=== PATIENT | male | born 1935 | race African-American/Black ===

== ENCOUNTER 2018-01-21 23:18 | Inpatient (IN) | payer MEDICARE ==
[~2018-01-21] VITALS: Ht 175.3 cm; Wt 89.3 kg
[2018-01-22] MEDS ORDERED: FAMO20 GT (00:02)
[2018-01-22] MEDS ORDERED: CARV12 GT (00:02)
[2018-01-22] MEDS ORDERED: ATOR40TA28 GT (00:02)
[2018-01-22] MEDS ORDERED: AMLO-512 GT (00:02)
[2018-01-22] MEDS ORDERED: IPRA3AMP23 NEB (00:02)
[2018-01-22] MEDS ORDERED: DSSL GT (00:02)
[2018-01-22] MEDS ORDERED: ASPI81 GT (00:02)
[2018-01-22] MEDS ORDERED: HEPA500041 SQ (00:02)
[2018-01-22] MEDS ORDERED: LISI-661 GT (00:02)
[2018-01-22 00:06] LABS: BASOPHILS % (AUTO) 0.7 % (0.0-2.0); EOSINOPHILS % (AUTO) 0.5 % (1.0-6.0); HEMATOCRIT 49.1 % (41-53); HEMOGLOBIN 16.7 g/dL (13.5-17.5); LYMPHOCYTES # (AUTO) 1.8 K/uL (1.0-4.8); LYMPHOCYTES % (AUTO) 17.4 % (22.0-44.0); MEAN CORPUSCULAR HEMOGLOBIN 34.5 pg (26.0-34.0); MEAN CORPUSCULAR HGB CONC 34.1 G/dL (31.0-37.0); MEAN CORPUSCULAR VOLUME 101 fL (80-100); MONOCYTES # (AUTO) 1.1 K/uL (0.1-1.0); NEUTROPHILS # (AUTO) 7.2 K/uL (1.8-7.7); NEUTROPHILS % (AUTO) 70.4 % (40.0-70.0); PLATELET COUNT (AUTO) 263 K/uL (150-450); RED BLOOD CELL COUNT(AUTO) 4.85 MIL/uL (4.50-5.90); RED CELL DISTRIBUTION WIDTH 14.1 % (11.5-14.5)
[2018-01-22] MEDS ORDERED: ONDANSETRON HCL 4 MG/2 ML VIAL IVP ONE (01:00)
[2018-01-22 01:14] LABS: ANION GAP 3 mmol/L (8-16); CALCIUM, TOTAL 10.4 mg/dL (8.8-10.5); CARBON DIOXIDE 33 mmol/L (22-29); CHLORIDE 99 mmol/L (98-107); CREATININE 1.08 mg/dL (0.60-1.30); GLOMERULAR FILTR. RATE CALC > 60 mL/min (>60); GLUCOSE,RANDOM 148 mg/dL (70-110); POTASSIUM 5.4 mmol/L (3.5-5.1); SODIUM SERUM 135 mmol/L (136-145); UREA NITROGEN, BLOOD 21 mg/dL (7-18)
[2018-01-22 01:19] LABS: ALANINE AMINOTRANSFERASE 45 U/L (12-78); ALBUMIN 3.5 g/dL (3.4-5.0); ALKALINE PHOSPHATASE 223 U/L (46-116); ASPARTATE AMINOTRANSFERASE 26 U/L (15-37); BILIRUBIN,TOTAL 1.2 mg/dL (0.1-1.0); LIPASE 127 U/L (73-393); TOTAL PROTEIN, SERUM 8.6 g/dL (6.4-8.2)
[2018-01-22] MEDS ORDERED: SODIUM CHLORIDE 0.9% 1,000 ML IV ONE (01:45)
[2018-01-22] MEDS ORDERED: LABETALOL HCL 5 MG/ML 20 ML VIAL IVP ONE (02:15)
[2018-01-22] MEDS ORDERED: ACETAMINOPHEN 325 MG TABLET PO PRN ×2 (04:00→10:30)
[2018-01-22] MEDS ORDERED: 0.9% SODIUM CHLORIDE 10 ML SYRINGE IVP PRN (04:00)
[2018-01-22] MEDS ORDERED: ONDANSETRON HCL 4 MG/2 ML VIAL IVP PRN ×2 (04:00→10:30)
[2018-01-22] MEDS ORDERED: LABETALOL HCL 5 MG/ML 20 ML VIAL IVP PRN (04:00)
[2018-01-22 05:45] VITALS: BP 106/56
[2018-01-22 07:47] VITALS: BP 150/95
[2018-01-22] MEDS ORDERED: HYDROCODONE/ACETAMINOPHEN 5-325 MG TABLET PO PRN (10:30)
[2018-01-22] MEDS ORDERED: ZOLPIDEM TARTRATE 5 MG TABLET PO PRN (10:30)
[2018-01-22] MEDS ORDERED: BISACODYL 10 MG RECTAL RECTAL SUPPOSITORY PR PRN (10:30)
[2018-01-22] MEDS ORDERED: MORPHINE SULFATE 2 MG/ML SYRINGE IVP PRN (10:30)
[2018-01-22] MEDS ORDERED: MAGNESIUM HYDROXIDE SUSPENSION 30 ML UDCUP PO PRN (10:30)
[2018-01-22] MEDS ORDERED: ACETAMINOPHEN 325 MG TABLET GT PRN (10:32)
[2018-01-22] MEDS ORDERED: HYDROCODONE/ACETAMINOPHEN 5-325 MG TABLET GT PRN (10:33)
[2018-01-22] MEDS ORDERED: MAGNESIUM HYDROXIDE SUSPENSION 30 ML UDCUP GT PRN (10:34)
[2018-01-22] MEDS ORDERED: ZOLPIDEM TARTRATE 5 MG TABLET GT PRN (10:34)
[2018-01-22 11:37] VITALS: BP 146/82
[2018-01-22 16:26] VITALS: BP 129/93
[2018-01-22] MEDS: HEPARIN SODIUM,PORCINE 5,000 UNITS/ML VIAL SQ SCH ×2 (16:44→23:48)
[2018-01-22] MEDS ORDERED: MAGNESIUM SULFATE 4 GM/WATER 100 ML IV PRN (17:30)
[2018-01-22] MEDS ORDERED: MAGNESIUM OXIDE 400 MG TABLET PO PRN (17:30)
[2018-01-22] MEDS ORDERED: MAGNESIUM SULFATE 2 GM/WATER 50 ML IV PRN (17:30)
[2018-01-22 18:45] LABS: ALBUMIN 3.3 g/dL (3.4-5.0); MAGNESIUM 2.3 mg/dL (1.80-2.40)
[2018-01-22 19:15] VITALS: BP 150/97
[2018-01-22] MEDS: CARVEDILOL 12.5 MG TABLET GT SCH (20:00)
[2018-01-22] MEDS: LISINOPRIL 10 MG TABLET GT SCH (20:00)
[2018-01-22] MEDS: PANTOPRAZOLE SODIUM 40 MG/VIAL IVP SCH (20:01)
[2018-01-22] MEDS: DOCUSATE SODIUM 100 MG CAPSULE GT SCH (20:01)
[2018-01-22] MEDS: FAMOTIDINE 20 MG TABLET GT SCH (20:01)
[2018-01-22] MEDS ORDERED: ATORVASTATIN CALCIUM 40 MG TABLET GT SCH (21:00)
[2018-01-22] MEDS ORDERED: [UNRECOGNIZED DRUG - OTHER] SQ SCH (21:00)
[2018-01-22 23:30] VITALS: BP 140/89
[2018-01-23 04:21] VITALS: BP 133/74
[2018-01-23 07:05] VITALS: BP 148/93
[2018-01-23] MEDS ORDERED: PANTOPRAZOLE SODIUM 40 MG DR TABLET PO SCH (09:00)
[2018-01-23] MEDS: HEPARIN SODIUM,PORCINE 5,000 UNITS/ML VIAL SQ SCH ×3 (09:49→23:54)
[2018-01-23] MEDS: PANTOPRAZOLE SODIUM 40 MG/VIAL IVP SCH ×2 (09:49→20:46)
[2018-01-23] MEDS: CARVEDILOL 12.5 MG TABLET GT SCH ×2 (09:49→20:33)
[2018-01-23] MEDS: FAMOTIDINE 20 MG TABLET GT SCH ×2 (09:49→20:32)
[2018-01-23] MEDS: DOCUSATE SODIUM 100 MG CAPSULE GT SCH ×2 (09:49→20:34)
[2018-01-23] MEDS: ASPIRIN 81 MG CHEWABLE TABLET GT SCH (09:50)
[2018-01-23] MEDS: LISINOPRIL 10 MG TABLET GT SCH ×2 (09:51→20:33)
[2018-01-23] MEDS: AmLODIPine BESYLATE 10 MG TABLET GT SCH (09:51)
[2018-01-23 11:44] VITALS: BP 114/71
[2018-01-23 15:15] VITALS: BP 124/89
[2018-01-23 20:06] VITALS: BP 136/75
[2018-01-23] MEDS: ATORVASTATIN CALCIUM 40 MG TABLET GT SCH (20:33)
[2018-01-24] VITALS (7 sets, daily range): BP systolic 118–141; BP diastolic 65–92
[2018-01-24 06:22] LABS: BASOPHILS % (AUTO) 0.7 % (0.0-2.0); EOSINOPHILS % (AUTO) 1.6 % (1.0-6.0); LYMPHOCYTES # (AUTO) 2.1 K/uL (1.0-4.8); LYMPHOCYTES % (AUTO) 35.8 % (22.0-44.0); MEAN CORPUSCULAR HEMOGLOBIN 34.3 pg (26.0-34.0); MEAN CORPUSCULAR HGB CONC 34.2 G/dL (31.0-37.0); MEAN CORPUSCULAR VOLUME 100 fL (80-100); MONOCYTES # (AUTO) 0.7 K/uL (0.1-1.0); MONOCYTES % (AUTO) 12.5 % (2.0-9.0); NEUTROPHILS # (AUTO) 2.9 K/uL (1.8-7.7); NEUTROPHILS % (AUTO) 49.4 % (40.0-70.0); PLATELET COUNT (AUTO) 264 K/uL (150-450); RED BLOOD CELL COUNT(AUTO) 4.09 MIL/uL (4.50-5.90); RED CELL DISTRIBUTION WIDTH 14.3 % (11.5-14.5)
[2018-01-24 06:37] LABS: ANION GAP 4 mmol/L (8-16); CALCIUM, TOTAL 9.1 mg/dL (8.8-10.5); CARBON DIOXIDE 32 mmol/L (22-29); CHLORIDE 105 mmol/L (98-107); CREATININE 1.06 mg/dL (0.60-1.30); GLUCOSE,RANDOM 123 mg/dL (70-110); POTASSIUM 3.5 mmol/L (3.5-5.1); SODIUM SERUM 141 mmol/L (136-145); UREA NITROGEN, BLOOD 29 mg/dL (7-18)
[2018-01-24 06:40] LABS: GLOMERULAR FILTR. RATE CALC > 60 mL/min (>60)
[2018-01-24] MEDS: PANTOPRAZOLE SODIUM 40 MG/VIAL IVP SCH ×3 (09:00→20:35)
[2018-01-24] MEDS: AmLODIPine BESYLATE 10 MG TABLET GT SCH (09:47)
[2018-01-24] MEDS: CARVEDILOL 12.5 MG TABLET GT SCH ×2 (09:47→20:34)
[2018-01-24] MEDS: HEPARIN SODIUM,PORCINE 5,000 UNITS/ML VIAL SQ SCH ×3 (09:47→23:53)
[2018-01-24] MEDS: FAMOTIDINE 20 MG TABLET GT SCH ×2 (09:47→20:34)
[2018-01-24] MEDS: LISINOPRIL 10 MG TABLET GT SCH ×2 (09:47→20:34)
[2018-01-24] MEDS: DOCUSATE SODIUM 100 MG CAPSULE GT SCH ×2 (09:48→20:34)
[2018-01-24] MEDS: ASPIRIN 81 MG CHEWABLE TABLET GT SCH (09:48)
[2018-01-24] MEDS ORDERED: HEPA500018 SQ (11:13)
[2018-01-24] MEDS ORDERED: POTASSIUM CHLORIDE 10% 40 MEQ/30 ML LIQUID UDCUP GT ONE (11:15)
[2018-01-24] MEDS ORDERED: ASPI81 PO (18:17)
[2018-01-24] MEDS ORDERED: ATOR10TA84 GT (18:32)
[2018-01-24] MEDS ORDERED: CARV12 GT (18:33)
[2018-01-24] MEDS ORDERED: AMLO-512 GT (18:33)
[2018-01-24] MEDS ORDERED: DSS100 GT (18:34)
[2018-01-24] MEDS ORDERED: FAMO20 GT (18:34)
[2018-01-24] MEDS ORDERED: LISI-661 GT (18:35)
[2018-01-24] MEDS ORDERED: HEPA500041 SQ (18:35)
[2018-01-24] MEDS ORDERED: ACET-784 GT (18:36)
[2018-01-24] MEDS ORDERED: PANT40TA25 GT (18:36)
[2018-01-24] MEDS ORDERED: BISA10S PR (18:38)
[2018-01-24] MEDS ORDERED: HYDR-4061 GT (18:39)
[2018-01-24] MEDS ORDERED: MOM30 GT (18:39)
[2018-01-24] MEDS: ATORVASTATIN CALCIUM 40 MG TABLET GT SCH (20:34)
[2018-01-25 04:39] VITALS: BP 137/81
[2018-01-25 07:39] VITALS: BP 140/83
[2018-01-25] MEDS: DOCUSATE SODIUM 100 MG CAPSULE GT SCH (09:08)
[2018-01-25] MEDS: AmLODIPine BESYLATE 10 MG TABLET GT SCH (09:08)
[2018-01-25] MEDS: FAMOTIDINE 20 MG TABLET GT SCH (09:08)
[2018-01-25] MEDS: PANTOPRAZOLE SODIUM 40 MG/VIAL IVP SCH (09:08)
[2018-01-25] MEDS: LISINOPRIL 10 MG TABLET GT SCH (09:08)
[2018-01-25] MEDS: ASPIRIN 81 MG CHEWABLE TABLET GT SCH (09:09)
[2018-01-25] MEDS: HEPARIN SODIUM,PORCINE 5,000 UNITS/ML VIAL SQ SCH (09:09)
[2018-01-25] MEDS: CARVEDILOL 12.5 MG TABLET GT SCH (09:12)
[2018-01-25] MEDS ORDERED: PNEUMOCOCCAL VACCINE POLYVALENT 0.5 ML VIAL [PPSV23] IM ONE (11:00)
[2018-01-25 11:36] VITALS: BP 134/81
[2018-01-25] MEDS ORDERED: CARVEDILOL 25 MG TABLET GT SCH (21:00)
[2018-01-26] MEDS ORDERED: AmLODIPine BESYLATE 5 MG TABLET GT SCH (09:00)
== END 2018-01-25 13:40 | DRG 305 ==
LOC: EMS 23:19 → 5S 01-22 04:00
PROVIDERS: ADMIT Internal Medicine; ATTEND Internal Medicine
DX: I16.0 Hypertensive urgency (principal); I69.354 Hemiplegia and hemiparesis following cerebral infarction affecting left non-dominant side; I47.2 Ventricular tachycardia; I10 Essential (primary) hypertension; R13.10 Dysphagia, unspecified; K21.9 Gastro-esophageal reflux disease without esophagitis; E78.00 Pure hypercholesterolemia, unspecified; J45.909 Unspecified asthma, uncomplicated; E78.5 Hyperlipidemia, unspecified; F01.50 Vascular dementia, unspecified severity, without behavioral disturbance, psychotic disturbance, mood disturbance, and anxiety; Z93.1 Gastrostomy status
CPT/HCPCS: 70450; 74022; 83735; 84132; 87081; 90686; 92610; 93005; 93306; 96361; 96374; 96375; 99285; C9113; J1644; J2405; J3490

== ENCOUNTER 2018-05-23 07:35 | Emergency (ER) | payer MEDICARE, OTHER ==
[~2018-05-23] VITALS: Ht 175.3 cm; Wt 95.5 kg
[~2018-05-23 07:35] MED LIST: ACET-784 GT; AMLO-512 GT; ASPI81 GT; ATOR40TA28 GT; BISA10S PR; CARV12 GT; DSSL GT; FAMO20 GT; HEPA500041 SQ; HYDR-4061 GT; IPRA3AMP23 NEB; LISI-661 GT; MOM30 GT; PANT40TA25 GT
[2018-05-23] MEDS ORDERED: DIATRIZOATE MEGLU/SOD 660/100 MG/ML 120 ML BOTTLE ONE (08:20)
[2018-05-23] MEDS ORDERED: LIDOCAINE/PF 1% 5 ML VIAL ONE (08:25)
[2018-05-23] MEDS ORDERED: SODIUM BICARBONATE 50 MEQ/50 ML VIAL ONE (08:26)
[2018-05-23 09:06] LABS: PROTHROMBIN TIME 10.6 SEC (9.4-11.6)
[2018-05-23 10:58] VITALS: BP 122/86
== END 2018-05-23 11:34 | disposition home or self-care (01) ==
LOC: EMS 07:36
DX: K94.23 Gastrostomy malfunction (principal); I10 Essential (primary) hypertension; E78.00 Pure hypercholesterolemia, unspecified; K21.9 Gastro-esophageal reflux disease without esophagitis; Z79.899 Other long term (current) drug therapy; Z79.82 Long term (current) use of aspirin
CPT/HCPCS: 36245; 36415; 49450; 76000; 85610; 85730; 99284; C1769; Q9963; J3490

== ENCOUNTER → 2019-02-05 | Outpatient (CLI) | payer MEDICARE, OTHER ==
[~2019-02-05] MED LIST changes: -AMLO-512 GT; +AMLO10TA7 GT; +LIDOCAINE 2% 30 ML JELLY TP ONE
== END | disposition home or self-care (01) ==
LOC: RADMN 08:36
PROVIDERS: ATTEND Hospitalist
DX: K94.23 Gastrostomy malfunction (principal); Y83.8 Other surgical procedures as the cause of abnormal reaction of the patient, or of later complication, without mention of misadventure at the time of the procedure; Y92.89 Other specified places as the place of occurrence of the external cause
CPT/HCPCS: 49450

== ENCOUNTER 2019-02-25 22:32 | Inpatient (IN) | payer MEDICARE, OTHER ==
[~2019-02-25] VITALS: Ht 175.3 cm; Wt 93.0 kg
[~2019-02-25 22:32] MED LIST changes: -DIATRIZOATE MEGLU/SOD 660/100 MG/ML 120 ML BOTTLE ONE; -LIDOCAINE 2% 5 ML JELLY ONE
[2019-02-25] MEDS ORDERED: IPRATROPIUM BROMIDE 0.5 MG/2.5 ML NEB SOLUTION NEB PRN (23:30)
[2019-02-25] MEDS ORDERED: HYDROCODONE/ACETAMINOPHEN 5-325 MG TABLET GT PRN (23:30)
[2019-02-25] MEDS ORDERED: ALBUTEROL SULFATE 2.5 MG/0.5 ML NEB SOLUTION NEB PRN (23:30)
[2019-02-25] MEDS ORDERED: ACETAMINOPHEN 325 MG TABLET PO PRN (23:30)
[2019-02-25] MEDS ORDERED: ONDANSETRON HCL 4 MG/2 ML VIAL IVP PRN (23:30)
[2019-02-25] MEDS ORDERED: ZOLPIDEM TARTRATE 5 MG TABLET GT PRN (23:30)
[2019-02-25] MEDS ORDERED: BISACODYL 10 MG RECTAL RECTAL SUPPOSITORY PR PRN (23:30)
[2019-02-25] MEDS ORDERED: VANCOMYCIN HCL 1 GM/D5% WATER 200 ML IV SCH (23:30)
[2019-02-25] MEDS ORDERED: MORPHINE SULFATE 2 MG/ML SYRINGE IVP PRN (23:30)
[2019-02-25] MEDS ORDERED: MAGNESIUM HYDROXIDE SUSPENSION 30 ML UDCUP GT PRN (23:30)
[2019-02-25] MEDS: HEPARIN SODIUM,PORCINE 5,000 UNITS/ML VIAL SQ SCH (23:49)
[2019-02-26 06:51] LABS: BASOPHILS % (AUTO) 0.2 % (0.0-2.0); EOSINOPHILS % (AUTO) 1.9 % (1.0-6.0); HEMATOCRIT 45.8 % (41-53); HEMOGLOBIN 15.6 g/dL (13.5-17.5); LYMPHOCYTES % (AUTO) 37.7 % (22.0-44.0); MEAN CORPUSCULAR HEMOGLOBIN 34.5 pg (26.0-34.0); MEAN CORPUSCULAR HGB CONC 34.1 G/dL (31.0-37.0); MEAN CORPUSCULAR VOLUME 101 fL (80-100); MONOCYTES # (AUTO) 0.7 K/uL (0.1-1.0); MONOCYTES % (AUTO) 13.7 % (2.0-9.0); NEUTROPHILS # (AUTO) 2.4 K/uL (1.8-7.7); NEUTROPHILS % (AUTO) 46.5 % (40.0-70.0); PLATELET COUNT (AUTO) 209 K/uL (150-450); RED BLOOD CELL COUNT(AUTO) 4.53 MIL/uL (4.50-5.90); RED CELL DISTRIBUTION WIDTH 13.9 % (11.5-14.5)
[2019-02-26 07:07] LABS: ALANINE AMINOTRANSFERASE 29 U/L (12-78); ALBUMIN 3.2 g/dL (3.4-5.0); ALKALINE PHOSPHATASE 162 U/L (46-116); ANION GAP 11 mmol/L (8-16); ASPARTATE AMINOTRANSFERASE 20 U/L (15-37); CALCIUM, TOTAL 9.2 mg/dL (8.8-10.5); CARBON DIOXIDE 26 mmol/L (22-29); CHLORIDE 108 mmol/L (98-107); CREATININE 1.07 mg/dL (0.60-1.30); GLOMERULAR FILTR. RATE CALC > 60 mL/min (>60); GLUCOSE,RANDOM 100 mg/dL (70-110); POTASSIUM 3.8 mmol/L (3.5-5.1); SODIUM SERUM 145 mmol/L (136-145); TOTAL PROTEIN, SERUM 7.2 g/dL (6.4-8.2); UREA NITROGEN, BLOOD 15 mg/dL (7-18)
[2019-02-26] MEDS: DOCUSATE SODIUM 100 MG/10 ML LIQUID UDCUP GT SCH ×2 (07:59→20:54)
[2019-02-26] MEDS: ASPIRIN 81 MG CHEWABLE TABLET GT SCH (07:59)
[2019-02-26] MEDS: FAMOTIDINE 20 MG TABLET GT SCH ×2 (08:01→20:55)
[2019-02-26] MEDS: LISINOPRIL 10 MG TABLET GT SCH ×2 (08:01→20:56)
[2019-02-26] MEDS: AmLODIPine BESYLATE 10 MG TABLET GT SCH (08:01)
[2019-02-26] MEDS: CARVEDILOL 12.5 MG TABLET GT SCH ×2 (08:01→20:55)
[2019-02-26] MEDS: HEPARIN SODIUM,PORCINE 5,000 UNITS/ML VIAL SQ SCH ×2 (08:15→17:07)
[2019-02-26] MEDS ORDERED: FAMOTIDINE 20 MG TABLET PO SCH (09:00)
[2019-02-26] MEDS ORDERED: PANTOPRAZOLE SODIUM 40 MG DR TABLET PO SCH (09:00)
[2019-02-26] MEDS ORDERED: DEXTROSE 5%-0.45% SODIUM CHL 1,000 ML IV ONE (13:15)
[2019-02-26] MEDS ORDERED: LIDOCAINE 2% 5 ML JELLY ONE (14:34)
[2019-02-26] MEDS ORDERED: DIATRIZOATE MEGLU/SOD 660/100 MG/ML 120 ML BOTTLE ONE (14:58)
[2019-02-26 16:44] VITALS: BP 139/60
[2019-02-26 19:47] VITALS: BP 156/89
[2019-02-26] MEDS ORDERED: ATORVASTATIN CALCIUM 40 MG TABLET GT SCH (21:00)
[2019-02-27 00:10] VITALS: BP 130/82
[2019-02-27] MEDS: HEPARIN SODIUM,PORCINE 5,000 UNITS/ML VIAL SQ SCH ×3 (00:13→17:49)
[2019-02-27 04:58] VITALS: BP 140/91
[2019-02-27 07:45] VITALS: BP 162/94
[2019-02-27 09:27] LABS: BASOPHILS % (AUTO) 0.6 % (0.0-2.0); EOSINOPHILS % (AUTO) 1.9 % (1.0-6.0); HEMATOCRIT 46.6 % (41-53); HEMOGLOBIN 15.9 g/dL (13.5-17.5); LYMPHOCYTES # (AUTO) 1.8 K/uL (1.0-4.8); MEAN CORPUSCULAR HEMOGLOBIN 34.9 pg (26.0-34.0); MEAN CORPUSCULAR VOLUME 103 fL (80-100); MONOCYTES # (AUTO) 0.6 K/uL (0.1-1.0); MONOCYTES % (AUTO) 13.7 % (2.0-9.0); NEUTROPHILS # (AUTO) 2.1 K/uL (1.8-7.7); NEUTROPHILS % (AUTO) 44.8 % (40.0-70.0); PLATELET COUNT (AUTO) 158 K/uL (150-450); RED BLOOD CELL COUNT(AUTO) 4.55 MIL/uL (4.50-5.90); RED CELL DISTRIBUTION WIDTH 14.1 % (11.5-14.5)
[2019-02-27] MEDS: DOCUSATE SODIUM 100 MG/10 ML LIQUID UDCUP GT SCH (09:37)
[2019-02-27] MEDS: FAMOTIDINE 20 MG TABLET GT SCH (09:37)
[2019-02-27] MEDS: LISINOPRIL 10 MG TABLET GT SCH (09:37)
[2019-02-27] MEDS: ASPIRIN 81 MG CHEWABLE TABLET GT SCH (09:37)
[2019-02-27] MEDS: AmLODIPine BESYLATE 10 MG TABLET GT SCH (09:37)
[2019-02-27] MEDS: CARVEDILOL 12.5 MG TABLET GT SCH (09:37)
[2019-02-27 09:53] LABS: ALANINE AMINOTRANSFERASE 24 U/L (12-78); ALBUMIN 3.1 g/dL (3.4-5.0); ALKALINE PHOSPHATASE 160 U/L (46-116); ANION GAP 11 mmol/L (8-16); ASPARTATE AMINOTRANSFERASE 20 U/L (15-37); CALCIUM, TOTAL 9.1 mg/dL (8.8-10.5); CARBON DIOXIDE 23 mmol/L (22-29); CHLORIDE 108 mmol/L (98-107); CREATININE 0.88 mg/dL (0.60-1.30); GLOMERULAR FILTR. RATE CALC > 60 mL/min (>60); GLUCOSE,RANDOM 120 mg/dL (70-110); POTASSIUM 3.7 mmol/L (3.5-5.1); SODIUM SERUM 142 mmol/L (136-145); UREA NITROGEN, BLOOD 15 mg/dL (7-18)
[2019-02-27 11:28] VITALS: BP 133/80
[2019-02-27 15:34] VITALS: BP 129/76
== END 2019-02-27 19:23 | DRG 395 ==
LOC: EMS 22:33 → 6N 02-26 15:15
PROVIDERS: ADMIT Hospitalist; ATTEND Hospitalist
PROC: 0DH63UZ Insertion of Feeding Device into Stomach, Percutaneous Approach (ICD-10-PCS; principal; 2019-02-26)
DX: Z43.1 Encounter for attention to gastrostomy (principal); E78.00 Pure hypercholesterolemia, unspecified; E78.5 Hyperlipidemia, unspecified; I10 Essential (primary) hypertension; K21.9 Gastro-esophageal reflux disease without esophagitis; Z86.73 Personal history of transient ischemic attack (TIA), and cerebral infarction without residual deficits
CPT/HCPCS: 49440; 76000; 83735; 87081; 96360; J1644; J2270

== ENCOUNTER → 2019-02-25 | Outpatient (CLI) | payer MEDICARE, OTHER ==
[~2019-02-25] MED LIST changes: +DIATRIZOATE MEGLU/SOD 660/100 MG/ML 120 ML BOTTLE ONE; -LIDOCAINE 2% 30 ML JELLY TP ONE; +LIDOCAINE 2% 5 ML JELLY ONE
== END | disposition home or self-care (01) ==
LOC: RADMN 09:19
PROVIDERS: ATTEND Internal Medicine
DX: Z43.1 Encounter for attention to gastrostomy (principal)
CPT/HCPCS: 49440; Q9963

== ENCOUNTER 2019-04-07 17:40 | Inpatient (IN) | payer MEDICARE, OTHER ==
[~2019-04-07] VITALS: Ht 171.4 cm; Wt 98.2 kg
[2019-04-07] MEDS ORDERED: DIATRIZOATE MEGLU/SOD 660/100 MG/ML 120 ML BOTTLE ONE (20:22)
[2019-04-07] MEDS ORDERED: ONDANSETRON HCL 4 MG/2 ML VIAL IVP PRN (20:45)
[2019-04-07] MEDS ORDERED: 0.9% SODIUM CHLORIDE 10 ML SYRINGE IVP PRN (20:45)
[2019-04-07] MEDS ORDERED: ACETAMINOPHEN 325 MG TABLET PO PRN ×2 (20:45→22:30)
[2019-04-07 21:38] LABS: BASOPHILS % (AUTO) 0.6 % (0.0-2.0); EOSINOPHILS % (AUTO) 1.9 % (1.0-6.0); HEMATOCRIT 48.3 % (41-53); HEMOGLOBIN 16.3 g/dL (13.5-17.5); LYMPHOCYTES # (AUTO) 2.6 K/uL (1.0-4.8); LYMPHOCYTES % (AUTO) 43.2 % (22.0-44.0); MEAN CORPUSCULAR HEMOGLOBIN 34.3 pg (26.0-34.0); MEAN CORPUSCULAR HGB CONC 33.7 G/dL (31.0-37.0); MEAN CORPUSCULAR VOLUME 102 fL (80-100); MONOCYTES # (AUTO) 0.7 K/uL (0.1-1.0); MONOCYTES % (AUTO) 11.6 % (2.0-9.0); NEUTROPHILS # (AUTO) 2.5 K/uL (1.8-7.7); NEUTROPHILS % (AUTO) 42.7 % (40.0-70.0); PLATELET COUNT (AUTO) 210 K/uL (150-450); RED BLOOD CELL COUNT(AUTO) 4.75 MIL/uL (4.50-5.90); RED CELL DISTRIBUTION WIDTH 13.9 % (11.5-14.5)
[2019-04-07 21:50] LABS: ANION GAP 2 mmol/L (8-16); CALCIUM, TOTAL 9.6 mg/dL (8.8-10.5); CARBON DIOXIDE 29 mmol/L (22-29); CHLORIDE 100 mmol/L (98-107); CREATININE 1.11 mg/dL (0.60-1.30); GLUCOSE,RANDOM 104 mg/dL (70-110); POTASSIUM 4.3 mmol/L (3.5-5.1); SODIUM SERUM 131 mmol/L (136-145); UREA NITROGEN, BLOOD 20 mg/dL (7-18)
[2019-04-07 21:51] LABS: GLOMERULAR FILTR. RATE CALC > 60 mL/min (>60)
[2019-04-07 21:56] LABS: ALANINE AMINOTRANSFERASE 33 U/L (12-78); ALBUMIN 3.7 g/dL (3.4-5.0); ALKALINE PHOSPHATASE 183 U/L (46-116); ASPARTATE AMINOTRANSFERASE 22 U/L (15-37); BILIRUBIN,TOTAL 1.1 mg/dL (0.1-1.0)
[2019-04-07] MEDS: SODIUM CHLORIDE 0.9% 1,000 ML IV SCH (22:24)
[2019-04-07 22:30] VITALS: BP 146/93
[2019-04-07] MEDS ORDERED: DEXTROSE 5%-0.45% SODIUM CHL 1,000 ML IV ONE (22:30)
[2019-04-07] MEDS ORDERED: BISACODYL 10 MG RECTAL RECTAL SUPPOSITORY PR PRN (22:30)
[2019-04-07] MEDS: HEPARIN SODIUM,PORCINE 5,000 UNITS/ML VIAL SQ SCH (23:06)
[2019-04-08] MEDS ORDERED: ASCO500 GT (00:34)
[2019-04-08] MEDS ORDERED: ALBU0.212 IH (00:34)
[2019-04-08 04:50] VITALS: BP 146/77
[2019-04-08 08:15] VITALS: BP 100/57
[2019-04-08] MEDS: HEPARIN SODIUM,PORCINE 5,000 UNITS/ML VIAL SQ SCH ×3 (09:24→23:18)
[2019-04-08] MEDS: SODIUM CHLORIDE 0.9% 1,000 ML IV SCH ×2 (09:25→16:44)
[2019-04-08 11:24] VITALS: BP 117/67
[2019-04-08 16:11] VITALS: BP 130/84
[2019-04-08 19:40] VITALS: BP 151/95
[2019-04-08 23:45] VITALS: BP 140/94
[2019-04-09] MEDS: SODIUM CHLORIDE 0.9% 1,000 ML IV SCH ×2 (01:08→16:54)
[2019-04-09 04:35] VITALS: BP 125/80
[2019-04-09 07:10] VITALS: BP 124/80
[2019-04-09] MEDS ORDERED: SODIUM CHLORIDE 0.9% 1,000 ML ONE (07:22)
[2019-04-09] MEDS ORDERED: SODIUM CHLORIDE 0.9% 1,000 ML IV ONE (08:00)
[2019-04-09] MEDS: HEPARIN SODIUM,PORCINE 5,000 UNITS/ML VIAL SQ SCH ×2 (08:56→16:54)
[2019-04-09 10:52] LABS: INR 1.1 (0.9-1.1); PROTHROMBIN TIME 11.2 SEC (9.4-11.6)
[2019-04-09 11:10] VITALS: BP 115/75
[2019-04-09] MEDS ORDERED: DIATRIZOATE MEGLU/SOD 660/100 MG/ML 120 ML BOTTLE ONE (13:20)
[2019-04-09] MEDS ORDERED: LIDOCAINE 2% 5 ML JELLY ONE ×2 (13:32)
[2019-04-09 15:15] VITALS: BP 143/79
[2019-04-09] MEDS ORDERED: DSSL PO (15:36)
[2019-04-09] MEDS ORDERED: HYDR-4061 PO (15:38)
== END 2019-04-09 19:14 | DRG 394 ==
LOC: EMS 17:43 → 6N 21:30
PROVIDERS: ADMIT Internal Medicine; ATTEND Internal Medicine
PROC: 0D20XUZ Change Feeding Device in Upper Intestinal Tract, External Approach (ICD-10-PCS; principal; 2019-04-09)
DX: K94.23 Gastrostomy malfunction (principal); E87.1 Hypo-osmolality and hyponatremia; I69.354 Hemiplegia and hemiparesis following cerebral infarction affecting left non-dominant side; E78.00 Pure hypercholesterolemia, unspecified; I10 Essential (primary) hypertension; Y83.8 Other surgical procedures as the cause of abnormal reaction of the patient, or of later complication, without mention of misadventure at the time of the procedure
CPT/HCPCS: 43246; 87081; 97112; 97162; 97167; 97530; G0378; J1644; J7030

== ENCOUNTER 2019-10-12 08:52 | Emergency (ER) | payer MEDICARE, OTHER ==
[~2019-10-12] VITALS: Ht 175.3 cm; Wt 90.9 kg
[~2019-10-12 08:52] MED LIST changes: +ALBU0.212 IH; +ASCO500 GT; +ASPI-728 GT; -ASPI81 GT; -DSSL GT; +DSSL PO; -HYDR-4061 GT; +HYDR-4061 PO; -LISI-661 GT; +PANT-31 GT; -PANT40TA25 GT
[2019-10-12 10:38] LABS: BASOPHILS % (AUTO) 0.7 % (0.0-2.0); EOSINOPHILS % (AUTO) 4.6 % (1.0-6.0); HEMATOCRIT 45.3 % (41-53); HEMOGLOBIN 14.8 g/dL (13.5-17.5); MEAN CORPUSCULAR HEMOGLOBIN 32.4 pg (26.0-34.0); MEAN CORPUSCULAR HGB CONC 32.7 G/dL (31.0-37.0); MEAN CORPUSCULAR VOLUME 99 fL (80-100); MONOCYTES # (AUTO) 0.7 K/uL (0.1-1.0); MONOCYTES % (AUTO) 12.2 % (2.0-9.0); NEUTROPHILS # (AUTO) 2.9 K/uL (1.8-7.7); NEUTROPHILS % (AUTO) 48.5 % (40.0-70.0); PLATELET COUNT (AUTO) 215 K/uL (150-450); RED BLOOD CELL COUNT(AUTO) 4.57 MIL/uL (4.50-5.90); RED CELL DISTRIBUTION WIDTH 15.7 % (11.5-14.5)
[2019-10-12] MEDS ORDERED: DIATRIZOATE MEGLU/SOD 660/100 MG/ML 120 ML BOTTLE ONE (10:45)
[2019-10-12 10:51] LABS: INR 1.1 (0.9-1.1); PROTHROMBIN TIME 11.7 SEC (9.4-11.6)
[2019-10-12 10:52] LABS: ANION GAP 7 mmol/L (8-16); CALCIUM, TOTAL 9.4 mg/dL (8.8-10.5); CARBON DIOXIDE 30 mmol/L (22-29); CHLORIDE 103 mmol/L (98-107); CREATININE 0.93 mg/dL (0.60-1.30); GLUCOSE,RANDOM 159 mg/dL (70-110); POTASSIUM 4.2 mmol/L (3.5-5.1); SODIUM SERUM 140 mmol/L (136-145); UREA NITROGEN, BLOOD 20 mg/dL (7-18)
[2019-10-12 10:58] LABS: ALANINE AMINOTRANSFERASE 55 U/L (12-78); ALBUMIN 3.2 g/dL (3.4-5.0); ALKALINE PHOSPHATASE 178 U/L (46-116); ASPARTATE AMINOTRANSFERASE 36 U/L (15-37); BILIRUBIN,TOTAL 1.2 mg/dL (0.1-1.0); GLOMERULAR FILTR. RATE CALC > 60 mL/min (>60)
[2019-10-12] MEDS ORDERED: LIDOCAINE/PF 1% 5 ML VIAL ONE (11:08)
[2019-10-12] MEDS ORDERED: LIDOCAINE 2% 5 ML JELLY ONE (11:08)
[2019-10-12] MEDS ORDERED: FentaNYL CITRATE-PF 100 MCG/2 ML VIAL ONE ×2 (11:22→11:23)
[2019-10-12 13:28] VITALS: BP 107/67
== END 2019-10-12 13:54 | disposition home or self-care (01) ==
LOC: EMS 08:59
DX: K94.23 Gastrostomy malfunction (principal); K21.9 Gastro-esophageal reflux disease without esophagitis; E78.00 Pure hypercholesterolemia, unspecified; I10 Essential (primary) hypertension; Z79.82 Long term (current) use of aspirin
CPT/HCPCS: 36415; 49440; 80053; 85025; 85610; 85730; 99284; C1769; C1887; J2001; J3010; Q9963; 43246; 76000

== ENCOUNTER 2019-11-13 20:33 | Inpatient (IN) | payer MEDICARE, OTHER ==
[~2019-11-13] VITALS: Ht 175.3 cm; Wt 90.9 kg
[~2019-11-13 20:33] MED LIST changes: +AMLO-258 GT; -AMLO10TA7 GT
[2019-11-13] MEDS ORDERED: 0.9% SODIUM CHLORIDE 10 ML SYRINGE IVP PRN (23:30)
[2019-11-13] MEDS ORDERED: ONDANSETRON HCL 4 MG/2 ML VIAL IVP PRN (23:30)
[2019-11-13] MEDS ORDERED: ACETAMINOPHEN 325 MG TABLET PO PRN ×2 (23:30)
[2019-11-13] MEDS ORDERED: BISACODYL 10 MG RECTAL RECTAL SUPPOSITORY PR PRN (23:30)
[2019-11-13 23:53] LABS: BASOPHILS % (AUTO) 0.7 % (0.0-2.0); EOSINOPHILS % (AUTO) 5.3 % (1.0-6.0); HEMATOCRIT 44.1 % (41-53); HEMOGLOBIN 14.4 g/dL (13.5-17.5); LYMPHOCYTES # (AUTO) 2.1 K/uL (1.0-4.8); MEAN CORPUSCULAR HEMOGLOBIN 31.9 pg (26.0-34.0); MEAN CORPUSCULAR HGB CONC 32.6 G/dL (31.0-37.0); MEAN CORPUSCULAR VOLUME 98 fL (80-100); MONOCYTES # (AUTO) 0.9 K/uL (0.1-1.0); MONOCYTES % (AUTO) 12.9 % (2.0-9.0); NEUTROPHILS # (AUTO) 3.5 K/uL (1.8-7.7); NEUTROPHILS % (AUTO) 51.1 % (40.0-70.0); PLATELET COUNT (AUTO) 207 K/uL (150-450); RED CELL DISTRIBUTION WIDTH 15.1 % (11.5-14.5)
[2019-11-14 00:04] LABS: ANION GAP 5 mmol/L (8-16); CALCIUM, TOTAL 9.8 mg/dL (8.8-10.5); CARBON DIOXIDE 29 mmol/L (22-29); CHLORIDE 102 mmol/L (98-107); CREATININE 1.03 mg/dL (0.60-1.30); GLUCOSE,RANDOM 117 mg/dL (70-110); POTASSIUM 4.2 mmol/L (3.5-5.1); SODIUM SERUM 136 mmol/L (136-145); UREA NITROGEN, BLOOD 22 mg/dL (7-18)
[2019-11-14 00:05] LABS: GLOMERULAR FILTR. RATE CALC > 60 mL/min (>60)
[2019-11-14] MEDS: HEPARIN SODIUM,PORCINE 5,000 UNITS/ML VIAL SQ SCH ×3 (02:04→16:18)
[2019-11-14 03:40] VITALS: BP 118/77
[2019-11-14 08:48] VITALS: BP 110/83
[2019-11-14] MEDS ORDERED: DEXTROSE 5%-0.45% SODIUM CHL 1,000 ML IV ONE (09:00)
[2019-11-14 11:34] LABS: INR 1.1 (0.9-1.1); PROTHROMBIN TIME 11.2 SEC (9.4-11.6)
[2019-11-14 12:35] VITALS: BP 134/77
[2019-11-14 16:00] VITALS: BP 119/77
[2019-11-14 19:45] VITALS: BP 134/83
[2019-11-14 23:20] VITALS: BP 119/74
[2019-11-15] MEDS: HEPARIN SODIUM,PORCINE 5,000 UNITS/ML VIAL SQ SCH ×3 (00:43→17:06)
[2019-11-15 04:18] VITALS: BP 116/76
[2019-11-15 08:28] VITALS: BP 138/79
[2019-11-15] MEDS: DEXTROSE 5%-0.45% SODIUM CHL 1,000 ML IV SCH (09:37)
[2019-11-15 15:44] VITALS: BP 133/54
[2019-11-15 19:00] VITALS: BP 87/42
[2019-11-16] VITALS (7 sets, daily range): BP systolic 114–148; BP diastolic 70–90
[2019-11-16] MEDS: HEPARIN SODIUM,PORCINE 5,000 UNITS/ML VIAL SQ SCH ×4 (00:58→22:52)
[2019-11-16] MEDS: DEXTROSE 5%-0.45% SODIUM CHL 1,000 ML IV SCH ×2 (02:14→22:51)
[2019-11-16] MEDS ORDERED: DIATRIZOATE MEGLU/SOD 660/100 MG/ML 120 ML BOTTLE ONE (11:06)
[2019-11-16] MEDS ORDERED: LIDOCAINE 2% 5 ML JELLY ONE (13:02)
[2019-11-17 05:55] VITALS: BP 127/71
[2019-11-17] MEDS: HEPARIN SODIUM,PORCINE 5,000 UNITS/ML VIAL SQ SCH (08:00)
[2019-11-17 08:19] VITALS: BP 118/76
[2019-11-17 11:36] LABS: BASOPHILS % (AUTO) 0.7 % (0.0-2.0); EOSINOPHILS % (AUTO) 5.4 % (1.0-6.0); HEMATOCRIT 44.1 % (41-53); HEMOGLOBIN 15.1 g/dL (13.5-17.5); LYMPHOCYTES # (AUTO) 1.7 K/uL (1.0-4.8); LYMPHOCYTES % (AUTO) 35.9 % (22.0-44.0); MEAN CORPUSCULAR HEMOGLOBIN 33.2 pg (26.0-34.0); MEAN CORPUSCULAR HGB CONC 34.1 G/dL (31.0-37.0); MEAN CORPUSCULAR VOLUME 97 fL (80-100); MONOCYTES # (AUTO) 0.8 K/uL (0.1-1.0); MONOCYTES % (AUTO) 16.7 % (2.0-9.0); NEUTROPHILS % (AUTO) 41.3 % (40.0-70.0); PLATELET COUNT (AUTO) 210 K/uL (150-450); RED BLOOD CELL COUNT(AUTO) 4.54 MIL/uL (4.50-5.90); RED CELL DISTRIBUTION WIDTH 15.1 % (11.5-14.5)
[2019-11-17 11:55] LABS: ANION GAP 5 mmol/L (8-16); CALCIUM, TOTAL 9.2 mg/dL (8.8-10.5); CARBON DIOXIDE 29 mmol/L (22-29); CHLORIDE 102 mmol/L (98-107); CREATININE 0.89 mg/dL (0.60-1.30); GLUCOSE,RANDOM 122 mg/dL (70-110); POTASSIUM 3.3 mmol/L (3.5-5.1); SODIUM SERUM 136 mmol/L (136-145); UREA NITROGEN, BLOOD 12 mg/dL (7-18)
[2019-11-17 11:56] LABS: GLOMERULAR FILTR. RATE CALC > 60 mL/min (>60)
[2019-11-17 13:41] VITALS: BP 112/63
== END 2019-11-17 14:05 | disposition home or self-care (01) | DRG 393 ==
LOC: EMS 20:35 → 6N 23:26
PROVIDERS: ADMIT Internal Medicine; ATTEND Internal Medicine
PROC: 0D20XUZ Change Feeding Device in Upper Intestinal Tract, External Approach (ICD-10-PCS; principal; 2019-11-16)
DX: K94.23 Gastrostomy malfunction (principal); E43 Unspecified severe protein-calorie malnutrition; F01.50 Vascular dementia, unspecified severity, without behavioral disturbance, psychotic disturbance, mood disturbance, and anxiety; R13.10 Dysphagia, unspecified; R62.7 Adult failure to thrive; K21.9 Gastro-esophageal reflux disease without esophagitis; I10 Essential (primary) hypertension; Y83.8 Other surgical procedures as the cause of abnormal reaction of the patient, or of later complication, without mention of misadventure at the time of the procedure; E78.00 Pure hypercholesterolemia, unspecified; I69.391 Dysphagia following cerebral infarction; Z74.01 Bed confinement status; Z03.818 Encounter for observation for suspected exposure to other biological agents ruled out; Z68.29 Body mass index [BMI] 29.0-29.9, adult
CPT/HCPCS: 49450; 76000; 87081; J1644